=== PATIENT | female | born 1990 | race Caucasian/White ===

== ENCOUNTER 2022-03-07 20:27 | Emergency (ER) | payer BC, MEDICAID, SELFPAY ==
[2022-03-07] VITALS (11 sets, daily range): BP systolic 107–129; BP diastolic 54–89; PULSE 60–77; RESP 16–20; TEMP 37.1; O2SAT 91–100; BMI 27.6
[2022-03-07] MEDS: ondansetron 2 mg/ML SDV 2 mL 4 MG IVP (20:35)
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
[2022-03-07] MEDS: HYDROmorphone 1 mg/mL INJ 1 mL 2 MG IVP (20:40)
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
[2022-03-07 21:06] LABS: Basophils % 0.2 %; Eosinophils % 0.5 %; Hematocrit 35.7 % (37.0-47.0); Hemoglobin 11.6 g/dL (11.5-15.3); Lymphocytes # 1.3 10^3/uL (0.8-4.8); Lymphocytes % 16.3 %; Mean Corpuscular HGB Conc 32.5 g/dL (30.0-36.0); Mean Corpuscular Hemoglobin 30.3 pg (28.0-34.0); Mean Corpuscular Volume 93.2 fl (81-99); Mean Platelet Volume 10.7 fL (7.4-10.4); Monocytes # 0.8 10^3/uL (0.2-0.9); Monocytes % 9.4 %; Neutrophils % 73.1 %; Nucleated Red Blood Cells % 0 %; Platelet Count 195 10^3/cmm (130-400); Red Blood Count 3.83 10^6/uL (4.1-5.3); Red Cell Distribution Width 13.1 % (12.1-15.1); White Blood Count 8.1 10^3/uL (4.0-10.0)
[2022-03-07 21:10] LABS: Add Urine Microscopic? NO; Charge for UA Resulting for Rev
[2022-03-07 21:12] LABS: Bilirubin Urine Neg (Negative); Blood Urine Neg (Negative); Glucose Urine UA Norm (Normal); Ketones Urine 1+ (Negative); Leukocyte Esterase Urine Negative (Negative); Nitrate Urine Negative (Negative); Protein Urine Neg (Negative); Specific Gravity, Urine 1.005 (1.005-1.030); Urine Appearance Clear (CLEAR); Urine Color Straw (Yellow); Urobilinogen Urine Norm (Negative); pH Urine 6 (5-7)
[2022-03-07 21:22] LABS: HCG, Serum Qual Negative (Negative)
[2022-03-07 21:27] LABS: Alanine Aminotransferase 16 U/L (0-33); Albumin Level 4.6 g/dL (3.5-5.2); Alkaline Phosphatase 54 IU/L (35-105); Anion Gap 19.3 (5-19); Aspartate Amino Transferase 23 U/L (0-32); Blood Urea Nitrogen 8 mg/dL (6-20); Calcium 9.3 mg/dL (8.5-10.5); Carbon Dioxide 20 mmol/L (22-29); Chloride 102 mmol/L (98-107); Globulin 2.2 g/dL (1.3-4.6); Glomerular Filtration Rate 115.9 mL/min (90-130); Glucose 86 mg/dL (65-115); Osmolality Calculated 284 mOsm/kg (285-295); Potassium 3.3 mmol/L (3.5-5.1); Sodium 138 mmol/L (136-145); Total Bilirubin 0.5 mg/dL (0.15-1.2); Total Protein 6.8 g/dL (6.6-8.7)
[2022-03-07] MEDS: HYDROmorphone 1 mg/mL INJ 1 mL IVP ×2 (21:43→23:45)
[2022-03-07] MEDS: sodium chloride 0.9% 1,000 ML 999 ML IV (21:51)
[2022-03-08 00:20] VITALS: BP 128/77; PULSE 62; RESP 18
== END 2022-03-08 00:20 | disposition home or self-care (01) ==
PROVIDERS: Emergency Provider Emergency Medicine
DX: S40.012A Contusion of left shoulder, initial encounter (principal); S44.92XA Injury of unspecified nerve at shoulder and upper arm level, left arm, initial encounter; V86.69XA Passenger of other special all-terrain or other off-road motor vehicle injured in nontraffic accident, initial encounter
CPT/HCPCS: 70450; 71250; 72125; 73030; 73060; 73090; 80053; 81003; 84703; 85025; 96361; 96374; 96375; 96376; 99284; J1170; J2405; J2930; J7030